=== PATIENT | male | born 1980 | race Caucasian/White ===

== ENCOUNTER 2022-08-31 20:15 | Emergency (ER) | payer MEDICAID ==
[~2022-08-31] VITALS: Ht 170.2 cm; Wt 158.8 kg
[2022-08-31 20:19] VITALS: BP_SYST 139
--- NOTE | 2022-08-31 20:22 | NUR ---
Patient triaged and placed in waiting room. VSS and patient appears in no acute distress at this time. Accompanied by EMS, awaiting available bed, and MD notified of need for MSE.
[2022-08-31] MEDS ORDERED: NACL 0.9% 1,000 ML IV ONE (21:00)
[2022-08-31] MEDS ORDERED: ONDANSETRON HCL 4 MG/2 ML VIAL IVP ONE ×2 (21:00→22:15)
[2022-08-31 21:12] LABS: BASOPHILS % (AUTO) 0.1 % (0.0-2.0); EOSINOPHILS # (AUTO) 0.1 K/uL (0.0-0.4); EOSINOPHILS % (AUTO) 0.5 % (0.0-4.0); HEMATOCRIT 48.8 % (36-54); HEMOGLOBIN 16.4 g/dL (14.0-18.0); LYMPHOCYTES # (AUTO) 0.3 K/uL (1.0-5.5); LYMPHOCYTES % (AUTO) 2.4 % (20.5-51.5); MEAN CORPUSCULAR HEMOGLOBIN 32 pg (27-31); MEAN CORPUSCULAR HGB CONC 34 % (32-36); MEAN CORPUSCULAR VOLUME 94 fL (79.0-98.0); MONOCYTES # (AUTO) 0.4 K/uL (0.0-1.0); MONOCYTES % (AUTO) 3.8 % (1.7-9.3); NEUTROPHILS # (AUTO) 10.4 K/uL (1.8-7.7); NEUTROPHILS % (AUTO) 93.2 % (40.0-70.0); PLATELET COUNT (AUTO) 229 K/uL (130-430); RED BLOOD CELL COUNT(AUTO) 5.17 MIL/uL (4.2-6.2); RED CELL DISTRIBUTION WIDTH 13.4 % (9.0-15.0); WHITE BLOOD COUNT (AUTO) 11.2 K/uL (4.8-10.8)
[2022-08-31 21:30] LABS: ALANINE AMINOTRANSFERASE 41 U/L (12-78); ALBUMIN 3.6 g/dL (3.4-4.8); ANION GAP 13 (5-15); ASPARTATE AMINOTRANSFERASE 41 U/L (10-37); CALCIUM 8.7 mg/dL (8.4-11.0); CHLORIDE 101 mmol/L (98-107); GFR AFRICAN AMERICAN 94 mL/min (>90); GLUCOSE 157 mg/dL (70-99); TOTAL BILIRUBIN 0.7 mg/dL (0.0-1.0); UREA NITROGEN, BLOOD 15 mg/dL (8-21)
[2022-08-31] MEDS ORDERED: MAG HYDROX/AL HYDROX/SIMETH 30 ML, LIDOCAINE VISCOUS 2% 15ML (PO) 15 ML, DICYCLOMINE HC... PO ONE ×3 (22:15)
[2022-08-31] MEDS ORDERED: ACETAMINOPHEN 500 MG TABLET PO ONE (22:15)
[2022-08-31] MEDS ORDERED: LABETALOL HCL 20 MG/4 ML CARTRIDGE IVP ONE (22:15)
[2022-09-01] MEDS ORDERED: NACL 0.9% 1,000 ML IV ONE
[2022-09-01 01:29] LABS: BILIRUBIN,URINE NEGATIVE (NEGATIVE); BLOOD, URINE NEGATIVE (NEGATIVE); CLARITY/URINE CLEAR (CLEAR); COLOR,URINE YELLOW (YELLOW); GLUCOSE,URINE NEGATIVE (NEGATIVE); KETONES,URINE TRACE (NEGATIVE); LEUKOCYTE ESTERASE ,URINE NEGATIVE (NEGATIVE); NITRITE, URINE NEGATIVE (NEGATIVE); PROTEIN URINE 2+ (NEGATIVE); UROBILINOGEN,URINE 0.2 (0.2-1.0)
[2022-09-01 01:39] LABS: CANNABINOID, URINE POSITIVE (NEG <=50)
[2022-09-01 01:40] LABS: BARBITURATE, URINE NEGATIVE (NEG <=200); BENZODIAZEPINE, URINE NEGATIVE (NEG <=150); COCAINE, URINE NEGATIVE (NEG <=150); METHAMPHETAMINES SCREEN,URINE NEGATIVE (NEG <=500); OPIATE, URINE NEGATIVE (NEG <=100); PHENCYCLIDINE SCREEN,URINE NEGATIVE (NEG <=25); UR TRICYCLIC ANTIDEPRESSANTS NEGATIVE (NEG <=300); URINE AMPHETAMINE NEGATIVE (NEG <=500); URINE METHADONE NEGATIVE (NEG <=200); URINE OXYCODONE SCREEN NEGATIVE (NEG <=100); URINE PROPOXYPHENE SCREEN NEGATIVE (NEG <=300)
[2022-09-01] MEDS ORDERED: PEPTAB PO (01:44)
[2022-09-01] MEDS ORDERED: LOPE2CAP PO (01:44)
[2022-09-01] MEDS ORDERED: FAMO-132 PO (01:44)
[2022-09-01] MEDS ORDERED: DICY10CA13 PO (01:44)
[2022-09-01 01:53] VITALS: BP_SYST 142
[2022-09-01 01:55] LABS: BACTERIA,URINE None Seen /HPF (None Seen); RBC,URINE 0-3 /HPF (0-3); WBC,URINE 0-3 /HPF (0-3)
== END 2022-09-01 02:05 | disposition home or self-care (01) ==
LOC: SED 20:15
DX: A05.9 Bacterial foodborne intoxication, unspecified (principal); K52.9 Noninfective gastroenteritis and colitis, unspecified; E11.9 Type 2 diabetes mellitus without complications; I10 Essential (primary) hypertension; R10.13 Epigastric pain; R11.2 Nausea with vomiting, unspecified; Z88.0 Allergy status to penicillin; Z79.899 Other long term (current) drug therapy
CPT/HCPCS: 99285; 96374; 71045; 96375; 96361; 80307; 80053; 83690; 85025; 84484; 36415; 93005; 81000; J2001; J2405; J7030